=== PATIENT | female | born 1950 | race Asian ===

== ENCOUNTER 2024-07-05 16:01 | Emergency (ER) | payer MEDICARE ==
[~2024-07-05] VITALS: Ht 154.9 cm; Wt 49.9 kg
[2024-07-05 16:13] VITALS: BP_SYST 125; PULSE 82; RESP 18; TEMP 97.9; O2SAT 98
[2024-07-05 16:49] LABS: BASOPHILS # (AUTO) 0.1 K/uL (0.0-0.2); BASOPHILS % (AUTO) 0.9 % (0.0-2.0); HEMATOCRIT 37.9 % (36-48); HEMOGLOBIN 12.8 g/dL (12.0-16.0); LYMPHOCYTES % (AUTO) 6.7 % (20.5-51.5); MEAN CORPUSCULAR HEMOGLOBIN 29 pg (27-31); MEAN CORPUSCULAR HGB CONC 34 % (32-36); MEAN CORPUSCULAR VOLUME 85 fL (79.0-98.0); MONOCYTES # (AUTO) 1.8 K/uL (0.0-1.0); MONOCYTES % (AUTO) 11.9 % (1.7-9.3); NEUTROPHILS # (AUTO) 12.5 K/uL (1.8-7.7); NEUTROPHILS % (AUTO) 80.5 % (40.0-70.0); PLATELET COUNT (AUTO) 290 K/uL (130-430); RED BLOOD CELL COUNT(AUTO) 4.47 MIL/uL (4.2-6.2); RED CELL DISTRIBUTION WIDTH 13.7 % (9.0-15.0); WHITE BLOOD COUNT (AUTO) 15.5 K/uL (4.8-10.8)
[2024-07-05 16:54] LABS: ANION GAP 10 (5-15); CALCIUM 8.5 mg/dL (8.4-11.0); CARBON DIOXIDE 28 mmol/L (23-29); CHLORIDE 95 mmol/L (98-107); CREATININE 1.18 mg/dL (0.55-1.30); GLUCOSE 163 mg/dL (74-106); POTASSIUM 3.7 mmol/L (3.5-5.1); SODIUM SERUM 133 mmol/L (136-145); UREA NITROGEN, BLOOD 10 mg/dL (8-21)
[2024-07-05] MEDS: NS 500 ML IV ONE (17:49)
[2024-07-05 18:37] VITALS: BP_SYST 128; PULSE 87; RESP 18; TEMP 98.1; O2SAT 98
[2024-07-05 18:51] LABS: BILIRUBIN,URINE NEGATIVE (NEGATIVE); BLOOD, URINE 3+ (NEGATIVE); CLARITY/URINE CLEAR (CLEAR); COLOR,URINE YELLOW (YELLOW); GLUCOSE,URINE NEGATIVE (NEGATIVE); KETONES,URINE NEGATIVE (NEGATIVE); LEUKOCYTE ESTERASE ,URINE 1+ (NEGATIVE); NITRITE, URINE NEGATIVE (NEGATIVE); PH,URINE 6.5 (5.0-8.0); PROTEIN URINE TRACE (NEGATIVE); UROBILINOGEN,URINE 0.2 (0.2-1.0)
[2024-07-05 18:58] LABS: RBC,URINE 0-3 /HPF (0-3)
[2024-07-05 18:59] LABS: BACTERIA,URINE FEW /HPF (None Seen); MUCUS,URINE None Seen /LPF (None Seen)
[2024-07-06] MEDS ORDERED: LEVO88TA5 PO (22:53)
[2024-07-06] MEDS ORDERED: SITA100T11 PO (22:53)
[2024-07-06] MEDS ORDERED: AMLO5TAB4 PO (22:53)
[2024-07-06] MEDS ORDERED: CARV10CP10 PO (22:53)
== END 2024-07-05 18:37 | disposition home or self-care (01) ==
LOC: SED 16:01
DX: U07.1 COVID-19 (principal); R50.9 Fever, unspecified; R11.2 Nausea with vomiting, unspecified; R05.9 Cough, unspecified; I10 Essential (primary) hypertension
CPT/HCPCS: 99284; 96360; 71045; 80048; 81001; 85025; 87040; 87086; 36415; 83605; 81000; 81015; J7030; 87186

== ENCOUNTER 2024-07-06 19:18 | Inpatient (IN) | payer MEDICARE ==
[~2024-07-06] VITALS: Ht 154.9 cm; Wt 44.9 kg
[2024-07-06 19:50] VITALS: BP_SYST 95; PULSE 87; RESP 16; TEMP 98.8; O2SAT 95
[2024-07-06 21:27] LABS: INR 1.1 (0.8-1.2); PROTHROMBIN TIME 11.7 SECS (9.5-12.5)
[2024-07-06 21:28] LABS: ALANINE AMINOTRANSFERASE 24 U/L (12-78); ALBUMIN 2.7 g/dL (3.4-4.8); ANION GAP 10 (5-15); ASPARTATE AMINOTRANSFERASE 19 U/L (10-37); CALCIUM 8.4 mg/dL (8.4-11.0); CARBON DIOXIDE 28 mmol/L (23-29); CHLORIDE 95 mmol/L (98-107); CREATININE 1.27 mg/dL (0.55-1.30); GLUCOSE 190 mg/dL (74-106); POTASSIUM 3.4 mmol/L (3.5-5.1); SODIUM SERUM 133 mmol/L (136-145); TOTAL BILIRUBIN 0.8 mg/dL (0.0-1.0); TOTAL PROTEIN, SERUM 7.6 g/dL (6.4-8.3); UREA NITROGEN, BLOOD 11 mg/dL (8-21)
[2024-07-06 21:31] LABS: BILIRUBIN,DIRECT 0.3 mg/dL (0.0-0.3)
[2024-07-06 21:36] LABS: HEMATOCRIT 34.5 % (36-48); HEMOGLOBIN 11.7 g/dL (12.0-16.0); MEAN CORPUSCULAR HEMOGLOBIN 29 pg (27-31); MEAN CORPUSCULAR HGB CONC 34 % (32-36); MEAN CORPUSCULAR VOLUME 86 fL (79.0-98.0); PLATELET COUNT (AUTO) 296 K/uL (130-430); RED BLOOD CELL COUNT(AUTO) 4.03 MIL/uL (4.2-6.2); RED CELL DISTRIBUTION WIDTH 14.1 % (9.0-15.0); WHITE BLOOD COUNT (AUTO) 19.8 K/uL (4.8-10.8)
[2024-07-06] MEDS: NACL 0.9% 1,000 ML IV ONE (21:40)
[2024-07-06] MEDS: KETOROLAC TROMETHAMINE 15 MG VIAL IVP ONE (21:42)
[2024-07-06] MEDS: ONDANSETRON HCL 4 MG/2 ML VIAL IVP ONE (21:42)
[2024-07-06] MEDS: ACETAMINOPHEN 325 MG TABLET PO ONE (21:43)
[2024-07-06 22:16] LABS: INFLUENZA TYPE A Negative (NEGATIVE)
[2024-07-06 22:18] LABS: INFLUENZA TYPE B POSITIVE (NEGATIVE)
[2024-07-06] MEDS ORDERED: ALBUTEROL SULFATE 0.083% 2.5 MG/3 ML VIAL.NEB INH PRN (22:30)
[2024-07-06] MEDS ORDERED: ACETAMINOPHEN 325 MG TABLET PO PRN (22:30)
[2024-07-06] MEDS: NACL 0.9% 1,000 ML IV SCH (22:30)
[2024-07-06] MEDS ORDERED: IPRATROPIUM BROM 0.5 MG/2.5 ML VIAL.NEB (ATROVENT) INH PRN (22:30)
[2024-07-06] MEDS ORDERED: MORPHINE 2 MG/ML INJ. SYRINGE IVP PRN (22:30)
[2024-07-06] MEDS ORDERED: HYDROcodone/ACETAMIN 5-325 MG TAB (NORCO/ VICODIN) PO PRN (22:30)
[2024-07-06] MEDS ORDERED: LORazepam 2 MG/ML VIAL IVP PRN (22:30)
[2024-07-06] MEDS ORDERED: ONDANSETRON HCL 4 MG/2 ML VIAL IVP PRN (22:30)
[2024-07-06] MEDS: MEROPENEM 1 GM VIAL IV ONE (22:36)
[2024-07-06 22:46] LABS: BAND % (MANUAL) 10 % (0-6); BASOPHILS % (MANUAL) 0 % (0-2); EOSINOPHILS % (MANUAL) 0 % (0-7); LYMPHOCYTES % (MANUAL) 3 % (20-46); MONOCYTES % (MANUAL) 6 % (0-11); PLATELET ESTIMATE ADEQUATE (ADEQUATE)
[2024-07-06] MEDS: MEROPENEM 1 GM IVPB PREMIX 50 ML IV ONE (22:46)
[2024-07-06] MEDS: OSELTAMIVIR PHOSPHATE 75 MG CAPSULE PO ONE (22:46)
[2024-07-06] MEDS ORDERED: AMLO5TAB4 PO (22:53)
[2024-07-06] MEDS ORDERED: LEVO88TA5 PO (22:53)
[2024-07-06] MEDS ORDERED: SITA100T11 PO (22:53)
[2024-07-06] MEDS ORDERED: CARV10CP10 PO (22:53)
[2024-07-07 05:27] VITALS: BP_SYST 138; PULSE 72; O2SAT 98
[2024-07-07] MEDS: MEROPENEM 1 GM in NS 100 ML IV SCH (06:40)
[2024-07-07 07:38] LABS: BASOPHILS % (AUTO) 0.1 % (0.0-2.0); EOSINOPHILS % (AUTO) 0.2 % (0.0-4.0); HEMATOCRIT 35.6 % (36-48); LYMPHOCYTES # (AUTO) 1.1 K/uL (1.0-5.5); LYMPHOCYTES % (AUTO) 5.4 % (20.5-51.5); MEAN CORPUSCULAR HEMOGLOBIN 29 pg (27-31); MEAN CORPUSCULAR HGB CONC 34 % (32-36); MEAN CORPUSCULAR VOLUME 86 fL (79.0-98.0); MONOCYTES # (AUTO) 1.4 K/uL (0.0-1.0); MONOCYTES % (AUTO) 6.9 % (1.7-9.3); NEUTROPHILS # (AUTO) 17.7 K/uL (1.8-7.7); PLATELET COUNT (AUTO) 328 K/uL (130-430); RED BLOOD CELL COUNT(AUTO) 4.15 MIL/uL (4.2-6.2); RED CELL DISTRIBUTION WIDTH 13.9 % (9.0-15.0); WHITE BLOOD COUNT (AUTO) 20.2 K/uL (4.8-10.8)
[2024-07-07 08:07] LABS: ALANINE AMINOTRANSFERASE 21 U/L (12-78); ALBUMIN 2.5 g/dL (3.4-4.8); ANION GAP 9 (5-15); ASPARTATE AMINOTRANSFERASE 16 U/L (10-37); CALCIUM 8.5 mg/dL (8.4-11.0); CARBON DIOXIDE 27 mmol/L (23-29); CHLORIDE 102 mmol/L (98-107); CREATININE 1.25 mg/dL (0.55-1.30); GLUCOSE 155 mg/dL (74-106); POTASSIUM 3.4 mmol/L (3.5-5.1); SODIUM SERUM 138 mmol/L (136-145); TOTAL BILIRUBIN 0.6 mg/dL (0.0-1.0); TOTAL PROTEIN, SERUM 7.5 g/dL (6.4-8.3); UREA NITROGEN, BLOOD 11 mg/dL (8-21)
[2024-07-07 08:08] LABS: NEUTROPHILS % (AUTO) 87.4 % (40.0-70.0)
[2024-07-07] MEDS ORDERED: COR12.5 PO (08:21)
[2024-07-07 08:27] LABS: BILIRUBIN,URINE NEGATIVE (NEGATIVE); BLOOD, URINE 3+ (NEGATIVE); COLOR,URINE YELLOW (YELLOW); GLUCOSE,URINE NEGATIVE (NEGATIVE); KETONES,URINE NEGATIVE (NEGATIVE); LEUKOCYTE ESTERASE ,URINE 2+ (NEGATIVE); NITRITE, URINE NEGATIVE (NEGATIVE); PROTEIN URINE 1+ (NEGATIVE); UROBILINOGEN,URINE 0.2 (0.2-1.0)
[2024-07-07 08:34] LABS: CLARITY/URINE HAZY (CLEAR)
[2024-07-07] MEDS: OSELTAMIVIR PHOSPHATE 75 MG CAPSULE PO SCH (09:02)
[2024-07-07 09:05] LABS: BACTERIA,URINE FEW /HPF (None Seen); WBC,URINE 20-50 /HPF (0-3)
[2024-07-07 09:28] VITALS: O2SAT 97
[2024-07-07 10:06] LABS: PROTHROMBIN TIME 11.1 SECS (9.5-12.5)
[2024-07-07 12:19] VITALS: BP_SYST 153; PULSE 91; RESP 16; TEMP 96.9; O2SAT 100
[2024-07-07] MEDS: LEVOTHYROXINE SODIUM 0.088 MG TABLET PO ONE (14:00)
[2024-07-07] MEDS: amLODIPine BESYLATE 5 MG TABLET PO ONE (15:44)
[2024-07-07] MEDS: ENOXAPARIN SODIUM 30 MG/0.3 ML SYRINGE SUBCUT SCH (15:44)
[2024-07-07] MEDS: CARVEDILOL 12.5 MG TABLET (COREG) PO ONE (15:45)
[2024-07-07 16:00] VITALS: BP_SYST 120; PULSE 89; RESP 16; TEMP 97; O2SAT 98
[2024-07-07] MEDS: TIMOLOL MALEATE 0.25% OPHTHALMIC DROPS 5 ML OP SCH (17:35)
[2024-07-07] MEDS: LEVOTHYROXINE SODIUM 0.088 MG TABLET PO SCH (17:36)
[2024-07-07 20:00] VITALS: BP_SYST 117; PULSE 83; RESP 18; TEMP 98.1; O2SAT 95
[2024-07-07] MEDS: CARVEDILOL 12.5 MG TABLET (COREG) PO SCH (21:00)
[2024-07-07] MEDS: INSULIN LISPRO SLIDING SCALE 100 UNITS/ML, 3 ML VIAL (humaLOG) SUBCUT PRN (21:57)
[2024-07-08 00:47] VITALS: BP_SYST 113; PULSE 72; RESP 16; TEMP 97; O2SAT 98
[2024-07-08 08:00] VITALS: BP_SYST 135; PULSE 79; RESP 14; TEMP 97.6; O2SAT 96
[2024-07-08 09:56] LABS: BASOPHILS % (AUTO) 0.2 % (0.0-2.0); EOSINOPHILS # (AUTO) 0.1 K/uL (0.0-0.4); EOSINOPHILS % (AUTO) 0.8 % (0.0-4.0); HEMATOCRIT 33.9 % (36-48); HEMOGLOBIN 11.3 g/dL (12.0-16.0); LYMPHOCYTES # (AUTO) 1.1 K/uL (1.0-5.5); LYMPHOCYTES % (AUTO) 7.6 % (20.5-51.5); MEAN CORPUSCULAR HEMOGLOBIN 29 pg (27-31); MEAN CORPUSCULAR HGB CONC 33 % (32-36); MEAN CORPUSCULAR VOLUME 86 fL (79.0-98.0); MONOCYTES % (AUTO) 6.5 % (1.7-9.3); NEUTROPHILS # (AUTO) 12.3 K/uL (1.8-7.7); NEUTROPHILS % (AUTO) 84.9 % (40.0-70.0); PLATELET COUNT (AUTO) 421 K/uL (130-430); RED BLOOD CELL COUNT(AUTO) 3.95 MIL/uL (4.2-6.2); RED CELL DISTRIBUTION WIDTH 14.4 % (9.0-15.0); WHITE BLOOD COUNT (AUTO) 14.5 K/uL (4.8-10.8)
[2024-07-08] MEDS ORDERED: NACL 0.9% 1,000 ML IV SCH (10:00)
[2024-07-08 10:59] LABS: ANION GAP 7 (5-15); CALCIUM 7.8 mg/dL (8.4-11.0); CARBON DIOXIDE 27 mmol/L (23-29); CHLORIDE 101 mmol/L (98-107); CREATININE 1.12 mg/dL (0.55-1.30); GLUCOSE 191 mg/dL (74-106); SODIUM SERUM 135 mmol/L (136-145); UREA NITROGEN, BLOOD 9 mg/dL (8-21)
[2024-07-08 11:04] LABS: POTASSIUM 2.9 mmol/L (3.5-5.1)
[2024-07-08] MEDS: KCL 20 mEq in 100 mL (PREMIX) 200 ML IV ONE (12:09)
[2024-07-08] MEDS: POTASSIUM CHLORIDE 20 MEQ/PKT PACKET PO ONE (12:10)
[2024-07-08 12:41] VITALS: BP_SYST 115; PULSE 78; RESP 16; TEMP 97.1; O2SAT 98
[2024-07-08 16:35] VITALS: BP_SYST 123; PULSE 71; RESP 16; TEMP 96.9; O2SAT 98
[2024-07-08 20:00] VITALS: BP_SYST 111; PULSE 76; RESP 16; TEMP 96.8; O2SAT 98
[2024-07-08] MEDS: POTASSIUM CHLORIDE 20 MEQ/PKT PACKET PO SCH (21:01)
[2024-07-09 00:49] VITALS: BP_SYST 131; PULSE 75; RESP 18; TEMP 97.6; O2SAT 92
[2024-07-09 05:07] LABS: BASOPHILS # (AUTO) 0.1 K/uL (0.0-0.2); BASOPHILS % (AUTO) 0.6 % (0.0-2.0); EOSINOPHILS # (AUTO) 0.2 K/uL (0.0-0.4); EOSINOPHILS % (AUTO) 2.3 % (0.0-4.0); HEMATOCRIT 29.7 % (36-48); HEMOGLOBIN 10.1 g/dL (12.0-16.0); LYMPHOCYTES # (AUTO) 1.6 K/uL (1.0-5.5); LYMPHOCYTES % (AUTO) 15.4 % (20.5-51.5); MEAN CORPUSCULAR HEMOGLOBIN 29 pg (27-31); MEAN CORPUSCULAR HGB CONC 34 % (32-36); MEAN CORPUSCULAR VOLUME 85 fL (79.0-98.0); MONOCYTES # (AUTO) 1.1 K/uL (0.0-1.0); MONOCYTES % (AUTO) 10.3 % (1.7-9.3); NEUTROPHILS # (AUTO) 7.4 K/uL (1.8-7.7); NEUTROPHILS % (AUTO) 71.4 % (40.0-70.0); PLATELET COUNT (AUTO) 441 K/uL (130-430); RED BLOOD CELL COUNT(AUTO) 3.51 MIL/uL (4.2-6.2); RED CELL DISTRIBUTION WIDTH 14.4 % (9.0-15.0); WHITE BLOOD COUNT (AUTO) 10.4 K/uL (4.8-10.8)
[2024-07-09 05:35] LABS: ANION GAP 9 (5-15); CALCIUM 7.3 mg/dL (8.4-11.0); CARBON DIOXIDE 25 mmol/L (23-29); CHLORIDE 106 mmol/L (98-107); CREATININE 0.82 mg/dL (0.55-1.30); GLUCOSE 112 mg/dL (74-106); POTASSIUM 3.9 mmol/L (3.5-5.1); SODIUM SERUM 140 mmol/L (136-145); UREA NITROGEN, BLOOD 6 mg/dL (8-21)
[2024-07-09 07:00] VITALS: O2SAT 98
[2024-07-09 08:00] VITALS: BP_SYST 162; PULSE 72; RESP 18; TEMP 97.9; O2SAT 98
[2024-07-09 12:00] VITALS: BP_SYST 132; PULSE 75; RESP 18; TEMP 97.6; O2SAT 99
[2024-07-10] VITALS (7 sets, daily range): BP systolic 135–151; PULSE 77–96; RESP 17–18; TEMP 98–99; O2SAT 96–99
[2024-07-10] MEDS ORDERED: OSEL75CA PO (08:12)
[2024-07-10] MEDS ORDERED: ERTA1VIA3 IV (08:12)
[2024-07-10 08:15] LABS: BASOPHILS # (AUTO) 0.1 K/uL (0.0-0.2); BASOPHILS % (AUTO) 0.7 % (0.0-2.0); EOSINOPHILS # (AUTO) 0.2 K/uL (0.0-0.4); EOSINOPHILS % (AUTO) 2.2 % (0.0-4.0); HEMATOCRIT 33.7 % (36-48); HEMOGLOBIN 11.2 g/dL (12.0-16.0); LYMPHOCYTES # (AUTO) 1.4 K/uL (1.0-5.5); LYMPHOCYTES % (AUTO) 13.4 % (20.5-51.5); MEAN CORPUSCULAR HEMOGLOBIN 29 pg (27-31); MEAN CORPUSCULAR HGB CONC 33 % (32-36); MEAN CORPUSCULAR VOLUME 86 fL (79.0-98.0); MONOCYTES # (AUTO) 1.1 K/uL (0.0-1.0); NEUTROPHILS # (AUTO) 7.8 K/uL (1.8-7.7); PLATELET COUNT (AUTO) 504 K/uL (130-430); RED BLOOD CELL COUNT(AUTO) 3.91 MIL/uL (4.2-6.2); RED CELL DISTRIBUTION WIDTH 14.2 % (9.0-15.0); WHITE BLOOD COUNT (AUTO) 10.5 K/uL (4.8-10.8)
[2024-07-10 08:29] LABS: ANION GAP 11 (5-15); CARBON DIOXIDE 22 mmol/L (23-29); CHLORIDE 104 mmol/L (98-107); CREATININE 0.89 mg/dL (0.55-1.30); GLUCOSE 149 mg/dL (74-106); POTASSIUM 3.9 mmol/L (3.5-5.1); SODIUM SERUM 137 mmol/L (136-145); UREA NITROGEN, BLOOD 6 mg/dL (8-21)
[2024-07-10 08:33] LABS: NEUTROPHILS % (AUTO) 73.7 % (40.0-70.0)
[2024-07-10] MEDS: ERTAPENEM SODIUM 1 GM in NS 50 ML IV SCH (12:01)
== END 2024-07-10 19:30 | disposition home health service (06) | DRG 871 ==
LOC: SED 19:18 → STU 22:24 → SMU 07-09 14:04
PROVIDERS: ADMIT Student in an Organized Health Care Education/Training Program; ATTEND Student in an Organized Health Care Education/Training Program
DX: A41.89 Other specified sepsis (principal); J10.01 Influenza due to other identified influenza virus with the same other identified influenza virus pneumonia; N39.0 Urinary tract infection, site not specified; Z16.12 Extended spectrum beta lactamase (ESBL) resistance; E44.0 Moderate protein-calorie malnutrition; Z68.1 Body mass index [BMI] 19.9 or less, adult; R64 Cachexia; Z20.822 Contact with and (suspected) exposure to COVID-19; I10 Essential (primary) hypertension; E11.9 Type 2 diabetes mellitus without complications; E78.5 Hyperlipidemia, unspecified; E03.9 Hypothyroidism, unspecified; B96.20 Unspecified Escherichia coli [E. coli] as the cause of diseases classified elsewhere
CPT/HCPCS: 36415; 71045; 76770; 80048; 80053; 80076; 81000; 81001; 81015; 82948; 83605; 83735; 84100; 84484; 85007; 85025; 85027; 85610; 85730; 87040; 87086; 93005; 94070; 94760; 99285; G0378; G9035; J1335; J1650; J1885; J2185; J2405; J3480